=== PATIENT | female | born 1970 | race Caucasian/White ===

== ENCOUNTER 2024-09-03 03:14 | Inpatient (IN) | payer OTHER, SELFPAY ==
[2024-09-02 20:00] VITALS: BP 132/80
[2024-09-02 20:30] LABS: Urine Albumin Trace (Neg - Trace); Urine Bilirubin Negative (Negative); Urine Character Clear (Clear); Urine Color Yellow; Urine Glucose Negative (Negative); Urine Ketone 3+ (Negative); Urine Leukocyte 2+ (Negative); Urine Nitrite Negative (Negative); Urine Occult Blood 2+ (Negative); Urine Specific Gravity 1.025 (<1.030); Urine Urobilinogen Negative (Neg - 1+)
[2024-09-02 20:30] LABS: % Basophils 0.6 % (0-2); % Immature Granulocytes 0.4 % (0-0.5); % Lymphocytes 11.7 % (20.5-51.1); % Monocytes 5.4 % (1.7-9.3); % Neutrophils 80.9 % (42.2-75.2); Absolute Basophils 0.1 10^3/uL (0-0.2); Absolute Eosinophils 0.1 10^3/uL (0-0.7); Absolute Lymphocytes 1.2 10^3/uL (1.2-3.4); Absolute Monocytes 0.5 10^3/uL (0.1-0.6); Hematocrit 36.5 % (37.0-47.0); Mean Corp Hgb Conc. 32.9 g/dL (33.0-37.0); Mean Corpuscular Volume 82.2 fL (81.0-99.0); Mean Platelet Volume 10.4 fL (7.4-10.4); Nucleated Red Blood Cells % 0 %; Platelet Count 253 10^3/uL (130-400); Red Blood Cell Count 4.44 10^6/uL (4.20-5.40); White Blood Cell Count 9.9 10^3/uL (4.8-10.8)
[2024-09-02 20:42] LABS: Urine Mucus Many; Urine Squamous Cell 0-2 /LPF (Few)
[2024-09-02 20:43] LABS: Urine Bacteria Moderate (Negative); Urine White Cell 16-20 /HPF (0-5)
[2024-09-02 20:50] LABS: ALT (SGPT) 18 U/L (0-35); AST (SGOT) 29 U/L (14-36); Albumin 4.6 g/dl (3.5-5.0); Alkaline Phosphatase 66 U/L (38-126); Blood Urea Nitrogen 12 mg/dl (7-17); Calcium 9.7 mg/dl (8.4-10.2); Carbon Dioxide 24 mmol/L (22-30); Chloride 102 mmol/L (98-107); Glucose 122 mg/dl (70-99); Sodium 136 mmol/L (135-145); Total Bilirubin 1.2 mg/dl (0.2-1.3); Total Protein 7.1 g/dl (6.3-8.2); eGFR > 60.00
[2024-09-02 21:03] VITALS: BP 122/58
[2024-09-02 21:18] VITALS: BMI 20.4
--- NOTE | 2024-09-02 21:33 | ED.GENMED ---
History of Present Illness
General
Chief Complaint: Abdominal Pain
Source: patient and significant other
Exam Limitations: none
Time Seen by Provider: 09/02/24 21:13
History of Present Illness
History of Present Illness:
53yoF with no significant past medical history presenting with her for evaluation of diarrhea. Her current symptoms began today. She reports diarrhea, right lower quadrant abdominal pain, and nausea. She has had similar episodes over the
past few months. She was treated in the beginning of July with antibiotics for a UTI. She does not remember what antibiotic she was taking. She reports ongoing malaise and nausea in between these episodes. She had about 7-8 episodes of
diarrhea today. She denies any vomiting. She is also having dysuria and states it feels like a knife when she is urinating. Patient had a telemedicine appointment today and the provider advised her to go to the ED for evaluation. No previous
abdominal surgeries.
Phy Exam
General Physical Exam
General Presentation: well appearing and no apparent distress
General age: appears stated age
General Skin: warm and dry
General Habitus: normal
General Mental: alert
ENT Exam
ENT Exam: normocephalic
Cardiovascular Exam
Cardiovascular Exam: regular rate/rhythm
Pulmonary Exam
Pulmonary Exam: lungs clear, no respiratory distress, no rales and no crackles
Gastrointestinal Exam
Gastrointestinal Exam: soft, non distended, no cva tenderness and other (Mild tenderness in RLQ without rebound or guarding. No CVA tenderness. )
Neurological Exam
Neurological Exam: alert
Theresa Coma Scale
Eye Opening: Spontaneous
Verbal Response: Oriented
Motor Response: Obeys Commands
GCS Total Score: 15
Skin Exam
Skin Exam: normal color and warm/dry
Psychiatric Exam
Psychiatric Exam: normal mood/affect
Course
Orders/Labs/Results
Orders:
Orders
09/02/24 20:13
Complete Blood Count/With Diff Urgent
Comprehensive Metabolic Panel Urgent
Lipase Urgent
Comment: ADD ON
09/02/24 20:21
Urinalysis Reflex To Culture Urgent
Date Specimen was Collected: 09/02/24
Time Specimen was Collected: 20:03
Urine Microscopic Reflex Cult Urgent
Urine Culture Urgent
TRUNG Source: U
Specimen Description:
Date Specimen was Collected: 09/02/24
Time Specimen was Collected: 20:03
09/02/24 21:57
Add On- LAB Urgent
Tests Added?: lipase
CT Abd/pel W Iv And Oral Contr Urgent
Comment:
Reason For Exam: RLQ pain, diarrhea
CDIFF [C difficile Antigen & Toxins] Urgent
TRUNG Source: Feces/Stool
Specimen Description:
Norovirus by PCR Urgent
TRUNG Source: Feces/Stool
Specimen Description:
Stool Culture Urgent
TRUNG Source: Feces/Stool
Specimen Description:
0.9% Sodium Chloride 1000 ml [Nss] 1,000 ml IV BOLUS
Iohexol [Omnipaque] See Protocol PO NOW STA
09/03/24 01:00
CefTRIAXone [Rocephin] 2,000 mg IV NOW STA
09/03/24 01:13
Sterile Water [Sterile Water For Injection] 20 ml .ROUTE .STK-MED
09/03/24 01:53
Tamsulosin [Flomax] 0.4 mg PO NOW STA
09/03/24 01:55
Tamsulosin [Flomax] 0.4 mg .ROUTE .STK-MED ONE
09/03/24 02:55
Admit/Transfer Patient As Directed
Co-Sign Provider:
Level of Care: Inpatient admission
Assign to:: Medical/Surgical
Physician / Group: hospitalist
Diagnosis: urolithiasis with infection
Reason for Hospitalization: kidney stone
Expected length of stay greater than two midnights?: Yes
ELOS- Estimated Length of Stay in days: 2
I certify the patient meets the requirements for IP care: Yes
PRN Pain Medication Management As Directed
May give lesser potent ordered pain med per pt: Yes
preference::
Protocol:: Medication orders for pain may be administered in a
manner that supports deferring to patient preference
when the pt is:
- Requesting an ordered lesser potent pain medication.
Least to most potent pain medications are defined
as: acetaminophen < NSAID < tramadol < opioids
(morphine, oxycodone, hydromorphone).
- Requesting a lesser dose of the same medication IF
ORDERED.
- Requesting a less intrusive route of administration
if both routes are prescribed by the provider (PO <
IV).
09/03/24 02:56
Code Status As Directed
Resuscitation Status: Full Code
09/03/24 03:00
Flush (0.9% Sodium Chloride) [Flush (Nss)] See Dose Instructions IV PER PROTOCOL
Abnormal Lab Results
09/02/24 09/02/24
20:13 20:21
Hct 36.5 L %
(37.0-47.0)
MCHC 32.9 L g/dL
(33.0-37.0)
Absolute Neuts (auto) 8.0 H 10^3/uL
(1.4-6.5)
Neutrophils % 80.9 H %
(42.2-75.2)
Lymphocytes % 11.7 L %
(20.5-51.1)
Glucose 122 H mg/dl
(70-99)
Urine Ketones 3+ A
(Negative)
Ur Occult Blood Reflex 2+ A
(Negative)
Leukocyte Esterase Rfl 2+ A
(Negative)
Urine RBC 3-6 A /HPF
(0-2)
Urine WBC (Reflex) 16-20 A /HPF
(0-5)
Urine Bacteria (Reflex) Moderate A
(Negative)
09/02/24 20:13
09/02/24 20:13
Vital Signs
Initial and Last Documented VS:
Initial Vital Signs
Temp Pulse Resp BP Pulse Ox
98.6 F 92 20 132/80 98
09/02/24 20:00 09/02/24 20:00 09/02/24 20:00 09/02/24 20:00 09/02/24 20:00
Last Documented Vital Signs
Temp Pulse Resp BP Pulse Ox
98.6 F 66 14 107/67 98
09/02/24 20:00 09/02/24 23:59 09/02/24 23:59 09/02/24 23:59 09/02/24 23:59
MDM/Problems Addressed
Differential Diagnosis Includes:
53yoF here with RLQ pain, dysuria, and diarrhea. Has been having intermittent symptoms since July. Symptoms acutely worsened today. Treated last month for a UTI. She is afebrile and hemodynamically stable. She is well-appearing in no acute
distress. No signs of peritonitis on abdominal exam. Differential diagnosis includes but is not limited to: UTI, pyelonephritis, kidney stone, appendicitis, ovarian cyst
Initial ED plan: Abdominal labs and UA obtained in triage. UA with 16-20 white blood cells and moderate bacteria consistent with a UTI. Labs unremarkable including normal white count. Will proceed with CT abdomen. IV fluid bolus ordered.
*Critical Care Note
Total Time (30-74mins, 75-104mins- exclusive of procedures): Not Applicable
Update Note
Update Note:
CT shows a 5 x 4 mm obstructing stone in the right UVJ with moderate to severe hydronephrosis. Bladder wall thickening also noted. IV Rocephin ordered. Urology notified of patient and she was admitted for further management.
ED Attending Note
-
Portions of this chart may have been created with voice recognition software.� Occasional wrong word or��sound alike� substitutions may have occurred due to the inherent limitations of voice recognition software.
Discharge Plan
Departure
Patient Disposition: Admit
Date of Disposition: 09/03/24
Time of Disposition: 01:54
Presentation/result/management discussed w/ accepting MD/DO: Hospitalist
Discharge Problem:
Right ureteral calculus, Urinary tract infection
Interventions
Interventions:
*Risk Screen - Suicide Last Done: 09/02/24 20:00
*General Assessment Last Done: 09/02/24 23:24
*Neglect/Abuse Screening Last Done: 09/02/24 20:00
ED- Fall Risk Assessment Last Done: 09/02/24 21:19
*ED COVID-19 Vaccine History Last Done: 09/02/24 23:24
FB-Aczwze-Dvfblirbpr Assessment Last Done: 09/02/24 21:19
[2024-09-02] MEDS: OMNIPAQUE 50 ML PO (22:08)
[2024-09-02 22:09] LABS: Lipase 88 U/L (23-300)
[2024-09-02] MEDS: NSS 1000 IV (22:12)
[2024-09-02 23:52] VITALS: BP 107/67
[2024-09-02 23:59] VITALS: BP 107/67
[2024-09-03] MEDS: ROCEPHIN 2000 MG IV (01:23)
[2024-09-03] MEDS: FLOMAX 0.4 MG PO ×2 (01:56→08:32)
[2024-09-03 03:00] VITALS: BP 106/79
--- NOTE | 2024-09-03 03:08 | HPS.HSE ---
Family Physician
-
Family Physician: Tory Du PA-C
Chief Complaint
-
Abdominal pain nausea vomiting
History of Present Illness
Reason otherwise healthy 53-year-old female with no significant past medical history presenting to the emergency department with 1 month of intermittent abdominal discomfort.
Patient reported that since June she has been having these episodes of intense nausea and vomiting as well as abdominal pain localized to the right lower quadrant. In 1 of these episodes she did not have dysuria and was seen by urgent clinic.
She was treated with antibiotics and seemed to improve. However she had 2 additional recurrence of nausea vomiting without dysuria and associated with abdominal pain for which she decided to come to the emergency department. Patient denies any
hematuria. She denies flank pain. She reports low back pain. She denies any abdominal bloating. Patient denies history of kidney stones.
In the emergency department she was afebrile, blood pressure was stable at 106/70 pulse of 66 satting 98% on room air. CBC was unremarkable. Chemistries were also within normal limits BUN and creatinine were normal. UA shows white cells leukocyte
esterase bacteria and blood. She had a CT scan of the abdomen pelvis showing a 5 x 4 mm distal right UVJ stone with moderate to severe hydroureteronephrosis and superimposed cystitis. No pyelonephritis.
Medical History
Past Medical History
Past Medical History: Reports None
Past Surgical History: Reports None
Social History
Tobacco: Non-smoker
Alcohol: Occasional
Drug: None
Personal:
Living: With Family
Employment: Employed
Family History
Family History: Cancer (Breast cancer in mother)
Allergies / Home Medications
Allergies reflects when Allergies were last updated in [facility].
Home Medications with original date entered in [employer]
Allergy/Medication List:
Allergies
Allergy/AdvReac Type Severity Reaction Status Date / Time
No Known Allergies Allergy Verified 09/02/24 20:02
Home Medications
ascorbic acid (vitamin C) 1,000 mg tablet (Vitamin C) 500 mg PO DAILY 09/03/24
vitamin A37-thrih acid 09/03/24
Review of Systems
-
History Source: Patient
Constitutional: Reports No Symptoms
EENT: Reports No Symptoms
Respiratory: Reports No Symptoms
Cardiac: Reports No Symptoms
Abdomen/GI: Reports Abdominal Pain, Nausea and Vomiting
: Reports Dysuria
Musculoskeletal: Reports No Symptoms
Skin: Reports No Symptoms
Neurological: Reports No Symptoms
Endocrine: Reports No Symptoms
Hematologic/Lymphatic: Reports No Symptoms
Psych: Reports No Symptoms
Physical Exam
Vital Signs
Vital Signs
Temp Pulse Resp BP Pulse Ox
98.6 F 66 14 107/67 98
09/02/24 20:00 09/02/24 23:59 09/02/24 23:59 09/02/24 23:59 09/02/24 23:59
Physical Exam
General: Well Developed, Well Nourished and No Apparent Distress
HEENT: NormoCephalic, Anicteric, Moist mucous membranes and Atraumatic
Respiratory: Clear
Cardiac: S1/S2 and Regular Rhythm
GI: Soft, Non Tender, Non Distended and Normal Bowel Sounds
Rectal: Deferred by Provider
Genito-urinary: Deferred by me
Musculoskeletal: No Clubbing, No Cyanosis and No Edema
Skin: Warm
Neuro: AO x 3 and Nonfocal/grossly intact
Psych: Calm
Laboratory Results
-
09/02/24 20:13
09/02/24 20:13
Laboratory Results
Total Bilirubin 1.2 mg/dl (0.2-1.3) 09/02/24 20:13
AST 29 U/L (14-36) 09/02/24 20:13
ALT 18 U/L (0-35) 09/02/24 20:13
Alkaline Phosphatase 66 U/L (38-126) 09/02/24 20:13
Lipase 88 U/L (23-300) 09/02/24 20:13
Data Reviewed
-
CT Scan: Report Reviewed by me
Lab Data: Labs Reviewed by me
Old Records: Reviewed
Impression/Plan
-
IMPRESSION:
Right 5x4 mm UVJ stone. Normal renal function, no sepsis. d/W urology. No indication for acute procedure, trial of passage first given size. Patient with cystitis on CT scan and positive u/a.
PLAN:
1. Kidney stone
- admit to med/surg
- iv fluids, antiemetics and pain control
- tamsulosin
- strain urine
- monitor for decompensation
- urology consult
2. Cystitis
- urine cultures sent
- ceftriaxone iv for now pending
DVT PPX - SCDs
Code status - full code
[2024-09-03 06:00] VITALS: BP 99/58
[2024-09-03 06:24] LABS: Hematocrit 34.4 % (37.0-47.0); Hemoglobin 11.2 g/dL (12.0-16.0); Mean Corp Hgb Conc. 32.6 g/dL (33.0-37.0); Mean Corpuscular Hgb 27.5 pg (27.0-31.0); Mean Corpuscular Volume 84.5 fL (81.0-99.0); Mean Platelet Volume 10.4 fL (7.4-10.4); Platelet Count 231 10^3/uL (130-400); Red Blood Cell Count 4.07 10^6/uL (4.20-5.40); Red Cell Dist. Width 13.2 % (11.5-14.5); White Blood Cell Count 7.5 10^3/uL (4.8-10.8)
[2024-09-03 06:36] LABS: Blood Urea Nitrogen 10 mg/dl (7-17); Calcium 8.8 mg/dl (8.4-10.2); Carbon Dioxide 28 mmol/L (22-30); Chloride 105 mmol/L (98-107); Estimated Creatinine Clearance 98 ml/min; Glucose 106 mg/dl (70-99); Potassium 3.9 mmol/L (3.5-5.1); Sodium 139 mmol/L (135-145); eGFR > 60.00
[2024-09-03] MEDS: LR 1000 IV ×2 (08:29→19:45)
[2024-09-03 09:15] VITALS: BP 95/52
[2024-09-03] MEDS: STERILE WATER FOR INJECTION 10 ML IV (13:12)
[2024-09-03] MEDS: ROCEPHIN 1000 MG IV (13:12)
[2024-09-03 14:18] VITALS: BP 104/73
--- NOTE | 2024-09-03 14:20 | EDRN ---
Patient taken to room 210 on stretcher by neurodiagnostic technician.
--- NOTE | 2024-09-03 14:30 | PTCARENOTE ---
Pt received from the ED via stretcher. Transport was w/o incident. Pt is AAOx3, HR bounding/regular rate, LCTA, resp. easy, Pulse ox 98% RA. VSS, Pt is afebrile. Pt denies pain or nausea at this time. Pt instructed to notify Nursing staff if she
begins to have pain, and instructed on options for pain relief. Pt oriented to hospital environment. Call morris is reach.
[2024-09-03 15:00] VITALS: BP 112/86
--- NOTE | 2024-09-03 15:08 | W.PN.UPDATE ---
Update Note
Progress Note Update
Nonbillable note (H&P submitted 3 AM)
Admitted with R UVJ stone, hydronephrosis, UTI - started on IVF and IV Abx
Urology evaluated and NPO p MN for stone procedure/stent in AM
Assessment:
Acute cystitis
Ureteral Stone
- CT: 5 mm calculus of the right ureterovesical junction with associated moderate to severe right hydroureteronephrosis.
- continue IVF
- continue IV Rocephin
- follow cultures
- d/w Urology; NPO p MN for stent/stone procedure. continue Flomax
DVT ppx: SCDs
Code: Full
[2024-09-03 23:50] VITALS: BP 101/73
[2024-09-04] VITALS (10 sets, daily range): BP systolic 84–126; BP diastolic 51–71
[2024-09-04] MEDS: LR 1000 IV (06:03)
[2024-09-04 07:02] LABS: Hemoglobin 10.8 g/dL (12.0-16.0); Mean Corp Hgb Conc. 32.7 g/dL (33.0-37.0); Mean Corpuscular Hgb 27.5 pg (27.0-31.0); Mean Platelet Volume 10.9 fL (7.4-10.4); Platelet Count 224 10^3/uL (130-400); Red Blood Cell Count 3.93 10^6/uL (4.20-5.40); Red Cell Dist. Width 13.2 % (11.5-14.5); White Blood Cell Count 5.1 10^3/uL (4.8-10.8)
[2024-09-04 07:29] LABS: Blood Urea Nitrogen 13 mg/dl (7-17); Calcium 8.9 mg/dl (8.4-10.2); Carbon Dioxide 27 mmol/L (22-30); Chloride 105 mmol/L (98-107); Estimated Creatinine Clearance 98 ml/min; Glucose 87 mg/dl (70-99); Potassium 4.5 mmol/L (3.5-5.1); Sodium 137 mmol/L (135-145); eGFR > 60.00
--- NOTE | 2024-09-04 08:09 | W.PN.HOSP.TC ---
Today's Communication/Plan
-
NPO for stent/stone procedure today. continue Flomax, IVF, IV Abx
Assessment / Plan
Assessment / Plan
Assessment:
Acute cystitis
Ureteral Stone
- CT: 5 mm calculus of the right ureterovesical junction with associated moderate to severe right hydroureteronephrosis.
- continue IVF
- continue IV Rocephin, day 2
- follow cultures; pending
- d/w Urology; NPO for stent/stone procedure today. continue Flomax
Diarrheal illness
- suspected antibiotics associated diarrhea
- stool studies so far negative
- probiotics daily at discharge
- OP GI f/u @ [facility] with colonoscopy planned in September
DVT ppx: SCDs
Code: Full
Anticipated Discharge: Within 24 hours
Subjective/Interval History
-
Date of Service: September 04, 2024
flank pain improving
diarrhea improving
no fever/chills
Objective Data
-
Labs:
Laboratory Results
09/04/24
05:28
WBC 5.1
Hgb 10.8 L
Hct 33.0 L
Plt Count 224
Sodium 137
Potassium 4.5
Chloride 105
Carbon Dioxide 27
BUN 13
Creatinine 0.6
Glucose 87
Calcium 8.9
Vital Signs:
Vital Signs
Temp Pulse Resp BP Pulse Ox
97.8 F 69 16 126/71 97
09/04/24 07:00 09/04/24 07:00 09/04/24 07:00 09/04/24 07:00 09/04/24 07:00
I&O
09/03/24 09/04/24 09/05/24
06:59 06:59 06:59
Intake Total 1680 / 1680
Output Total 1350 / 1350
Balance 330 / 330
Physical Exam
-
General: No Apparent Distress
HEENT: Normocephalic and Atraumatic
Respiratory: Negative Wheezes
Cardiac: Regular Rhythm and S1/S2
GI: Soft
Genito-urinary: No Costovertebral Tender
Neuro: AO x 3
Psych: Calm
Data Reviewed
-
Total Time Spent with Patient (in minutes): 42
Labs: Labs Reviewed by me
--- NOTE | 2024-09-04 09:56 | W.PN.URO.CBU ---
Today's Communication / Plan
-
if stable ok fpr d/c after eats and voids
Assessment / Plan
-
stone removed stented will observe and home if stable house diet
Diagnosis
-
Date of Service: September 04, 2024
-
Patient Diagnosis:
Post Op Day:
Patient Diagnosis:
rt uvj stone 4 x 5 mm hydro
Post Op Day:
Subjective
-
post op
Objective
-
Vital Signs
Temp Pulse Resp BP Pulse Ox
97.8 F 69 16 126/71 97
09/04/24 07:00 09/04/24 07:00 09/04/24 07:00 09/04/24 07:00 09/04/24 07:00
Intake and Output
09/03/24 09/04/24 09/05/24
06:59 06:59 06:59
Intake Total 1680 / 1680
Output Total 1350 / 1350
Balance 330 / 330
Intake:
Oral fluids 480 / 480
IV fluids (Total) 1200 / 1200
Output:
Urine, Voided 1350 / 1350
Laboratory Results
09/04/24 05:28
09/04/24 05:28
Review of Systems
-
: Dysuria and Frequency
Physical Exam
-
General - well developed, well nourished, no acute distress
Chest - clear bilaterally
Abdomen - soft, non-tender, positive bowel sounds, no CVAT, no incisional pain or distention
Genitalia - normal
Rectal - normal
Skin - warm & dry with no rash
Neuro - AOx3, no motor deficits
Extremities - no clubbing, no cyanosis, no edema
Care Review
Data Reviewed
Discussed with: Hospitalist
--- NOTE | 2024-09-04 10:50 | PTCARENOTE ---
Pt received from the PACU via bed. Transport was w/o incident. Pt is AAOx3, HRR, lungs are clear, abd soft, denies pain or nausea. VSS, Pt is afebrile. Pt instructed on post op. plan of care. Pt and Pt's verbalized understanding of
instructions. Call morris is within reach.
[2024-09-04] MEDS: FLOMAX 0.4 MG PO (10:59)
[2024-09-04] MEDS: ROCEPHIN 1000 MG IV (10:59)
[2024-09-04] MEDS: STERILE WATER FOR INJECTION 10 ML IV (10:59)
--- NOTE | 2024-09-04 11:09 | W.DS.TRANS ---
DC Summary - Electronic Warfare Technician
-
Discharge Instructions:
Discharge Diagnosis/Procedures UTI with 5 mm calculus of the right
ureterovesical junction with associated moderate
to severe right hydroureteronephrosis s/p stone
removal/stent placement 09/04
Diet Regular
Activity As tolerated
Driving Restrictions No driving
Bathing Restrictions None
Instructions:
Stand-Alone Forms:
Changes to Home Medications: No
Discharge Medications:
DC Medications w/original date entered in [facility]
ascorbic acid (vitamin C) 500 mg tablet (Vitamin C) 500 mg PO NOON 09/03/24
cyanocobalamin (vitamin B-12) 1,000 mcg tablet 1,000 mcg PO NOON 09/03/24
ibuprofen 200 mg tablet (Advil) 400 mg PO Q8HPRN PRN mild pain 09/03/24
acetaminophen 325 mg tablet 650 mg (2 x 325 mg) PO Q4HPRN PRN mild pain/CARDOZA/temp> 100.4F #100 tabs 09/04/24
cefdinir 300 mg capsule 300 mg PO BID #16 caps 09/04/24
phenazopyridine 200 mg tablet (Pyridium) 200 mg PO TID PRN urinary stent pain #14 tabs 09/04/24
Home Medication Changes
Pending Results: No
Total time spent discharging patient (in min): 41
--- NOTE | 2024-09-04 12:14 | CM ---
Met with pt and her at bedside
Pt reports she lives in a 2 story home with her ; 3 steps to enter, 12 steps to 2nd fl
Independent, employed FT, drives
DME - none
SNF/HH - denies past hx
Has ride at d/c
PCP - Tory Duckworth
Pharm - [facility]
Plan - anticipate home no needs
[2024-09-04] MEDS: LR IV (14:39)
[2024-09-04] MEDS: AFLURIA (36 mos+) 2024-2025 FORMULA 0.5 ML IM (14:53)
== END 2024-09-04 15:20 | disposition home or self-care (01) | DRG 660 ==
LOC: 2 SOUTH 03:14
PROVIDERS: Emergency Medicine; ADMITTING PHYSICIAN Internal Medicine; ATTENDING PHYSICIAN Internal Medicine; CONSULT PHYSICIAN Specialist; EMERGENCY PHYSICIAN Emergency Medicine; FAMILY PHYSICIAN Family Medicine
PROC: 0T768DZ Dilation of Right Ureter with Intraluminal Device, Via Natural or Artificial Opening Endoscopic (ICD-10-PCS; 2024-09-04)
PROC: 3E02340 Introduction of Influenza Vaccine into Muscle, Percutaneous Approach (ICD-10-PCS; 2024-09-04)
PROC: 0TF68ZZ Fragmentation in Right Ureter, Via Natural or Artificial Opening Endoscopic (ICD-10-PCS; 2024-09-04)
DX: N13.6 Pyonephrosis (principal); Z23 Encounter for immunization; K52.1 Toxic gastroenteritis and colitis; T36.8X5A Adverse effect of other systemic antibiotics, initial encounter
CPT/HCPCS: 74018; 74177; 76000; 80048; 80053; 81003; 81015; 83690; 85025; 85027; 87045; 87046; 87086; 87324; 87427; 87449; 87798; 90686; 96361; 96374; 99285; G0008; Q9967